=== PATIENT | male | born 1960 | race Caucasian/White ===

== ENCOUNTER 2016-11-09 00:06 | Emergency (ER) | payer OTHER ==
[~2016-11-09] VITALS: Ht 170.2 cm; Wt 86.0 kg
[~2016-11-09 00:06] MED LIST: AUGM875T PO; LIPI10TA PO
[2016-11-09 00:12] VITALS: BP 123/81; PULSE 89; RESP 16; TEMP 98.8; O2SAT 94
[2016-11-09] MEDS ORDERED: LIPI10TA PO (01:06)
[2016-11-09] MEDS ORDERED: CYCL1TAB29 PO (01:22)
[2016-11-09] MEDS ORDERED: ULTR50TA5 PO (01:22)
[2016-11-09] MEDS ORDERED: IBUP800T23 PO (01:22)
--- NOTE | 2016-11-09 01:23 | PD ---
HPI . Left calf pain Chief Complaint: Musculoskeletal Complaint Time Seen by Provider: 01:03 Travel History International Travel<30 days: No Contact w/Intl Traveler<30days: No Traveled to known affect area: No History of Present Illness HPI Patient presents stating that he injured his left calf playing basketball at about 9:30 PM. He states that something popped in the calf. He states it doesn 't really hurt that badly but it has become tremendously swollen. He did not apply any ice to it until he got here. He is not having any problem with dorsi and plantar flexion of the ankle. PFSH Past Medical History Blood Disorders: No Cancer: No Cardiovascular Problems: Yes High Cholesterol: Yes Diminished Hearing: No Endocrine: No Genitourinary: No Immune Disorder: No Implanted Vascular Access Dvce: Yes Musculoskeletal: No Neurologic: No Psychiatric: No Reproductive: No Respiratory: No ?: Not Past Surgical History Abdominal Surgery: Yes (BILATERAL HERNIA ) Body Medical Devices: OPAL GROIN MESH FOR HERNIA REPAIR Other Surgery: Yes Social History Alcohol Use: Yes (everyday ) Tobacco Use: No (QUIT) Substance Use: No Allergies-Medications (Allergen,Severity, Reaction): Coded Allergies: No Known Allergies (Verified , 11/09/16) Reported Meds & Prescriptions Reported Meds & Active Scripts Active Reported Lipitor (Atorvastatin Calcium) 10 Mg Tab 10 Mg PO HS Review of Systems Except as stated in HPI: all other systems reviewed are Neg Musculoskeletal: Positive: Myalgias, Other (swelling of the left calf) Neurologic: No: Weakness, Paresthesia Physical Exam Narrative GENERAL: Healthy-appearing man who was standing beside the bed and will need to see him. SKIN: Warm and dry. HEAD: Atraumatic. Normocephalic. EYES: Pupils equal and round. ENT: No nasal bleeding or discharge. Mucous membranes pink and moist. NECK: Trachea midline. CARDIOVASCULAR: Regular rate and rhythm. RESPIRATORY: No accessory muscle use. MUSCULOSKELETAL: Significant swelling of the left calf. He is able to dorsi and plantar flex the ankle. He is able to stand on his leg. There is no defect palpable in the Achilles. NEUROLOGICAL: Awake and alert. No obvious cranial nerve deficits. Motor grossly within normal limits. Normal speech. PSYCHIATRIC: Appropriate mood and affect; insight and judgment normal. Data Data Last Documented VS Vital Signs Date Time Temp Pulse Resp B/P Pulse Ox O2 Delivery O2 Flow Rate FiO2 11/09/16 00:12 98.8 89 16 123/81 94 Room Air MDM Medical Decision Making Medical Screen Exam Complete: Yes Emergency Medical Condition: Yes Differential Diagnosis Differential diagnosis of extremity trauma includes but is not limited to fracture, sprain or strain, dislocation, contusion Narrative Course Patient presents for evaluation of an injury to the left calf. He describes a torn muscle. Diagnosis Primary Impression: Gastrocnemius strain, left Qualified Code: S86.112A - Gastrocnemius strain, left, initial encounter Patient Instructions: Compartment Syndrome (GEN), General Instructions, Muscle Strain (ED), RICE Therapy (ED) Med/Other Pt SpecificInfo: Prescription(s) given Scripts Cyclobenzaprine (Flexeril)10 Mg Tab10 Mg PO TID #30 TAB Ref 0 Prov:Hansa Monreal MD 11/09/16 Tramadol (Ultram)50 Mg Tab50 Mg PO Q4H PRN (PAIN) #12 TAB Ref 0 Prov:Hansa Monreal MD 11/09/16 Ibuprofen 800 Mg Gyr170 Mg PO Q8H PRN (pain) #30 TAB Ref 0 Prov:Hansa Monreal MD 11/09/16 Disposition: 01 DISCHARGE HOME Condition: Stable Hansa Monreal MD Nov 09, 2016 01:23
[2016-11-09] MEDS ORDERED: traMADol HCL 50 MG TAB PO ONE (01:45)
[2016-11-09] MEDS ORDERED: CYCLOBENZAPRINE HCL 10 MG TAB PO ONE (01:45)
[2016-11-09] MEDS ORDERED: IBUPROFEN 800 MG TAB PO ONE (01:45)
[2016-11-09 01:54] VITALS: BP 154/72
== END 2016-11-09 01:56 | disposition home or self-care (01) ==
LOC: PHED 00:06
DX: S86.119A Strain of other muscle(s) and tendon(s) of posterior muscle group at lower leg level, unspecified leg, initial encounter (principal); E78.00 Pure hypercholesterolemia, unspecified; Y93.67 Activity, basketball; X58.XXXA Exposure to other specified factors, initial encounter; Y92.89 Other specified places as the place of occurrence of the external cause; Y99.8 Other external cause status
CPT/HCPCS: 99283